=== PATIENT | female | born 1995 | race Caucasian/White ===

== ENCOUNTER 2024-02-22 06:02 | Day surgery (SDC) | payer BC, SELFPAY ==
[2024-02-22 06:27] VITALS: BP 119/72; PULSE 89; RESP 16; TEMP 36.7; O2SAT 97; BMI 52.4
[2024-02-22 06:31] LABS: Ur HCG Qualitative* Negative (Negative)
[2024-02-22] MEDS: SODIUM CHLORIDE 0.9 % (FLUSH) 10 ML SYRINGE IVF (06:55)
[2024-02-22] MEDS: LACTATED RINGERS 1000 ML 1,000 ML 100 ML IV (06:55)
[2024-02-22 06:57] LABS: Hemoglobin* 9.6 gm/dL (12.0-16.0)
--- NOTE | 2024-02-22 07:26 | W.PM.H&PU ---
History & Physical Update History & Physical Update H&P Reviewed and patient assessed: No changes noted
--- NOTE | 2024-02-22 07:27 | PM.PROC ---
Procedure Note Time Seen by Provider: 08:16 Date Seen: 02/22/24 Date of procedure: 02/22/24 Will [facility] bill your pro fee for this procedure?: Yes Procedure: Preoperative diagnosis: : 28 year-old nulligravid woman with uterine fibroids and menorrhagia with secondary anemia. Postoperative diagnosis: Same Procedure: Hysteroscopic Myomectomy using the Truclear incisor Anesthesia: Conscious sedation, paracervical block. Surgeon: Cristina Negro MD Data Center Technician: None Estimated blood loss: 5 mL IV Fluid: 800 Specimen: Endometrial curettings to pathology. Findings: Exam under anesthesia: Uterus: Anteverted position, less than 10 week sized, mobile, with no masses or nodularity palpable. Uterus sounded to 10 cm. No adnexal masses or nodularity palpable. On hysteroscopy: 3 cm entirely submucosal fibroid otherwise the cavity appeared normal. Procedure: Ember was taken to the operating operating room more conscious sedation was found to be adequate. The patient was placed on in the dorsal lithotomy position and an exam under anesthesia was performed with findings stated above. She was then prepped and draped in a normal sterile manner. A bivalve speculum was placed in the vagina. The cervix appears nulliparous. Otherwise no abnormalities. The paracervical block was placed using 0.5% Marcaine, 5 mL was injected at the 4 and 8 o'clock positions on the cervix. The anterior lip of the cervix was grasped with a single-tooth tenaculum. The cervix dilated to Hegar 8. The uterus sounded to 10 cm. The Truclear hysteroscope was advanced into the uterus. A diagnostic hysteroscopy was performed with normal saline as the insufflation medium. Findings are stated above. The Truclear dense tissue incisor was then advanced through the camera. The curettage was performed with the incisor over an approximately 5 minutes. The incisor was then removed. The endometrial cavity appeared normal. Saline deficit at the end of the procedure 1385mL. Total saline used 5435 mL. The single-tooth tenaculum was removed from the anterior lip of the cervix. Silver nitrate was used for hemostasis. The hysteroscope, Allis clamp and speculum were removed from the vaginal canal. The patient tolerated the procedure well. Sponge, lap and instrument counts were correct x2 at the end of the procedure. The patient was taken to the recovery area in stable condition.
[2024-02-22] MEDS: BUPIVACAINE 0.5% 30 ML INJECTION (07:44)
--- NOTE | 2024-02-22 07:47 | W.ANESCHARGE ---
Anesthesia Charges Start Date/Time Anesthesia Start Date: 02/22/24 Anesthesia Start Time: 07:27 Stop Date/Time Anesthesia Stop Date: 02/22/24 Anesthesia Stop Time: 08:09
[2024-02-22] MEDS: SILVER NITRATE APPLICATOR 1 EACH STICK..EA. TOPICAL (07:56)
[2024-02-22 08:06] VITALS: BP 118/76; PULSE 83; RESP 18; TEMP 37; O2SAT 97
--- NOTE | 2024-02-22 08:12 | W.ANESCHARGE ---
Anesthesia Charges Start Date/Time Anesthesia Start Date: 02/22/24 Anesthesia Start Time: 07:27 Stop Date/Time Anesthesia Stop Date: 02/22/24 Anesthesia Stop Time: 08:09
[2024-02-22 08:15] VITALS: BP 107/82; PULSE 73; RESP 18; O2SAT 99
[2024-02-22 08:30] VITALS: BP 119/55; PULSE 70; RESP 18; O2SAT 98
[2024-02-22 08:44] VITALS: BP 116/67; PULSE 76; RESP 18; O2SAT 97
== END 2024-02-22 08:47 | disposition home or self-care (01) ==
PROVIDERS: Visit Provider Obstetrics & Gynecology
PROC: 0UDB8ZZ Extraction of Endometrium, Via Natural or Artificial Opening Endoscopic (ICD-10-PCS; CPT 58558; principal; 2024-02-22 07:30)
DX: N92.0 Excessive and frequent menstruation with regular cycle (principal); D25.0 Submucous leiomyoma of uterus; D50.0 Iron deficiency anemia secondary to blood loss (chronic); E66.01 Morbid (severe) obesity due to excess calories; Z68.42 Body mass index [BMI] 45.0-49.9, adult
CPT/HCPCS: 58561; 00860; 36415; 81025; 85018; 86850; 86900; 86901; 88305; A9270; J0665; J1885; J2250; J2704; J3010; J3490; J7120

== ENCOUNTER 2024-11-13 15:18 | Outpatient (CLI) | payer BC, SELFPAY | END 2024-11-13 15:19 | disposition home or self-care (01) | PROVIDERS: Visit Provider Obstetrics & Gynecology | DX: D64.9 Anemia, unspecified (principal); N92.0 Excessive and frequent menstruation with regular cycle; E66.01 Morbid (severe) obesity due to excess calories | CPT/HCPCS: 82728; 83540; 83550; 84443 ==

== ENCOUNTER 2024-11-15 14:34 | Outpatient (CLI) | payer BC, SELFPAY ==
--- NOTE | 2024-11-15 15:00 | CRLHL7_ITS ---
For Patients: As a result of the Century Cures Act, medical imaging exams and procedure reports are released immediately into your electronic medical record. You may view this report before your referring provider. If you have questions, please contact your health care provider. INDICATION: Anemia, heavy bleeding COMPARISON: none TECHNIQUE: 2D ronquillo scale and color Doppler images were acquired of the pelvis using a transabdominal and transvaginal approach. FINDINGS: Sonographic images demonstrate a normal size and smooth outer contour of the uterus. Uterus measures 8.2 cm in length by 4.0 cm in AP diameter by 4.2 cm in transverse dimension. No uterine fibroid is present. Heterogeneous vascular structures associated with the fundal endometrium measuring 12 x 22 x 13 millimeters. Endometrial stripe is 14.9 millimeters within the fundal region. The ovaries are not visualized. There are no suspicious fluid collections within the cul-de-sac. IMPRESSION: Vascular heterogeneously hyperechoic structure associated with the fundal endometrium measuring 2.2 cm, probable polyp or focal endometrial hyperplasia. Submucosal fibroid is considered less likely. Dictated by Dominguez Guy MD @ 11/15/2024 6:05:10 PM (Electronically Signed)
== END 2024-11-15 14:35 | disposition home or self-care (01) ==
PROVIDERS: Visit Provider Obstetrics & Gynecology
DX: D64.9 Anemia, unspecified (principal); D25.9 Leiomyoma of uterus, unspecified; N92.0 Excessive and frequent menstruation with regular cycle
CPT/HCPCS: 76830; 76856

== ENCOUNTER 2024-12-12 08:56 | Day surgery (SDC) | payer BC, SELFPAY ==
[2024-12-12 09:17] VITALS: BMI 53.6
[2024-12-12 09:28] LABS: Ur HCG Qualitative* Negative (Negative)
[2024-12-12 09:31] VITALS: BP 135/91; PULSE 74; RESP 16; TEMP 36.7; O2SAT 98
[2024-12-12 09:41] LABS: Hemoglobin* 12.2 gm/dL (12.0-16.0)
[2024-12-12] MEDS: 0.9 % SODIUM CHLORIDE 500 ML 500 ML 100 ML IV (09:44)
[2024-12-12] MEDS: SODIUM CHLORIDE 0.9 % (FLUSH) 10 ML SYRINGE IVF (09:46)
--- NOTE | 2024-12-12 09:59 | W.PM.H&PU ---
History & Physical Update History & Physical Update H&P Reviewed and patient assessed: No changes noted
--- NOTE | 2024-12-12 10:00 | P.PCN_ITS ---
Procedure Note Date Seen: 12/12/24 Date of procedure: 12/12/24 Will [facility] bill your pro fee for this procedure?: Yes Procedure Description: Preoperative diagnosis: 29 year old, nulligravid woman with menorrhagia and submucosal fibroid Postoperative diagnosis: Same Procedure: Hysteroscopic myomectomy Anesthesia: Conscious sedation, paracervical block. Surgeon: Cristina Negro MD Charger Operator Helper: None Estimated blood loss: [] mL Specimen: Endometrial curettings to pathology. Findings: Exam under anesthesia: Uterus: [] position, less than [] week sized, mobile, with no masses or nodularity palpable. Uterus sounded to [] cm. No adnexal masses or nodularity palpable. On hysteroscopy: [] Procedure: Ember was taken to the operating operating room more conscious sedation was found to be adequate. The patient was placed on in the dorsal lithotomy position and an exam under anesthesia was performed with findings stated above. She was then prepped and draped in a normal sterile manner. A bivalve speculum was placed in the vagina. The cervix appears nulliparous. Otherwise no abnormalities. The paracervical block was placed using 0.5% Marcaine, 5 mL was injected at the 4 and 8 o'clock positions on the cervix. The anterior lip of the cervix was grasped with a long Allis clamp. The cervix dilated to Hegar 6. The uterus sounded to [] cm. The Truclear hysteroscope was advanced into the uterus. A diagnostic hysteroscopy was performed with normal saline as the insufflation medium. Findings are stated above. The Truclear incisor was then advanced through the camera. The curettage was performed with the incisor over an approximately [] minutes. The incisor was then removed. The endometrial cavity appeared normal. Saline deficit at the end of the procedure [] mL. Total saline used [] mL. [] was used for hemostasis. The hysteroscope, Allis clamp and speculum were removed from the vaginal canal. The patient tolerated the procedure well. Sponge, lap and instrument counts were correct x2 at the end of the procedure. The patient was taken to the recovery area in stable condition.
[2024-12-12] MEDS: BUPIVACAINE 0.5% 30 ML INJECTION (11:05)
[2024-12-12] MEDS: SILVER NITRATE APPLICATOR 1 EACH STICK..EA. TOPICAL (11:05)
[2024-12-12 11:20] VITALS: BP 141/76; PULSE 55; RESP 16; TEMP 36.6; O2SAT 92
--- NOTE | 2024-12-12 11:25 | P.ANES_ITS ---
Anesthesia Charges Start Date/Time Anesthesia Start Date: 12/12/24 Anesthesia Start Time: 10:15 Stop Date/Time Anesthesia Stop Date: 12/12/24 Anesthesia Stop Time: 11:23 Coding CPT Codes CPT Codes: ANESTH HYSTEROSCOPE/GRAPH - 66842 ([id number]) P3 - PATIENT W/SEVERE SYS DISEASE, QK - SLASHER SAWYER 2-4 CNCRNT ANES PROC, QX - ABORIGINAL LIAISON OFFICER SVC W/ MD MED DIRECTION
--- NOTE | 2024-12-12 11:25 | W.ANESCHARGE ---
Anesthesia Charges Start Date/Time Anesthesia Start Date: 12/12/24 Anesthesia Start Time: 10:15 Stop Date/Time Anesthesia Stop Date: 12/12/24 Anesthesia Stop Time: 11:23 Coding CPT Codes CPT Codes: ANESTH HYSTEROSCOPE/GRAPH - 09626 ([id number]) P3 - PATIENT W/SEVERE SYS DISEASE, QK - NEUROLOGY EPILEPSY PHYSICIAN 2-4 CNCRNT ANES PROC, QX - GROUP LEADER WAFER POLISHING SVC W/ MD MED DIRECTION
[2024-12-12 11:30] VITALS: BP 120/75; PULSE 50; RESP 16; O2SAT 94
--- NOTE | 2024-12-12 11:34 | P.ANES_ITS ---
Anesthesia Charges Start Date/Time Anesthesia Start Date: 12/12/24 Anesthesia Start Time: 10:15 Stop Date/Time Anesthesia Stop Date: 12/12/24 Anesthesia Stop Time: 11:23 Coding CPT Codes CPT Codes: ANESTH SURGERY OF ABDOMEN - 60773 ([id number]) QK - BILLET GRINDER 2-4 CNCRNT ANES PROC, QX - SAFETY LEADER SVC W/ MD MED DIRECTION, P3 - PATIENT W/SEVERE SYS DISEASE
--- NOTE | 2024-12-12 11:34 | W.ANESCHARGE ---
Anesthesia Charges Start Date/Time Anesthesia Start Date: 12/12/24 Anesthesia Start Time: 10:15 Stop Date/Time Anesthesia Stop Date: 12/12/24 Anesthesia Stop Time: 11:23 Coding CPT Codes CPT Codes: ANESTH SURGERY OF ABDOMEN - 54221 ([id number]) QK - PBX WIRE CHIEF 2-4 CNCRNT ANES PROC, QX - UTILIZATION MANAGEMENT UM NURSE SVC W/ MD MED DIRECTION, P3 - PATIENT W/SEVERE SYS DISEASE
--- NOTE | 2024-12-12 11:35 | P.PCN_ITS ---
Procedure Note Date Seen: 12/12/24 Date of procedure: 12/12/24 Will [facility] bill your pro fee for this procedure?: Yes Procedure: Preoperative diagnosis: 29 year-old nulligravid woman with uterine fibroids and menorrhagia Postoperative diagnosis: Same Procedure: Hysteroscopic myomectomy Anesthesia: Conscious sedation, paracervical block. Surgeon: Crisitna Negro MD Training Professional: None Estimated blood loss: 75 mL Specimen: Endometrial curettings to pathology. Findings: Exam under anesthesia: Uterus: Mid position, size difficult to evaluate by palpation secondary to patient body habitus. Uterus sounded to 10 cm. No adnexal masses or nodularity palpable. On hysteroscopy: Approximately 2 x 2 cm fundal, posterior fibroid. Both tubal ostia were visualized and the remainder of the endometrium appeared normal Procedure: Ember was taken to the operating operating room more conscious sedation was found to be adequate. The patient was placed on in the dorsal lithotomy position and an exam under anesthesia was performed with findings stated above. She was then prepped and draped in a normal sterile manner. A bivalve speculum was placed in the vagina. The cervix appears nulliparous. Otherwise no abnormalities. The paracervical block was placed using 0.5% Marcaine, 10 mL was injected at the 4 and 8 o'clock positions on the cervix. The anterior lip of the cervix was grasped with a single-toothed tenaculum. The cervix dilated to Hegar 8. The uterus sounded to 10 cm. The Truclear hysteroscope was advanced into the uterus. A diagnostic hysteroscopy was performed with normal saline as the insufflation medium. Findings are stated above. The Truclear incisor was then advanced through the camera. The curettage was performed with the incisor over an approximately 10 minutes with the soft tissue plus incisor. The dense tissue plus incisor was not available in stock in this facility. The incisor was then removed. The endometrial cavity appeared normal except for a very small sliver of fibroid tissue that was connected to the uterus with very thin stock. This portion of the fibroid was removed with sharp curettage. Saline deficit at the end of the procedure 3390 mL. Total saline used 6600 mL. Silver nitrate and 2 figure of 8 sutures at the right tenaculum site on the cervix using 3-0 Vicryl were used for hemostasis. The hysteroscope, Allis clamp and speculum were removed from the vaginal canal. The patient tolerated the procedure well. Sponge, lap and instrument counts were correct x2 at the end of the procedure. The patient was taken to the recovery area in stable condition. The patient received 30 mg of IV Toradol at the end of the procedure.
[2024-12-12 11:45] VITALS: BP 120/50; PULSE 52; RESP 14; O2SAT 94
[2024-12-12] MEDS: ACETAMINOPHEN 500 MG TABLET 1000 MG PO (11:54)
[2024-12-12 12:00] VITALS: BP 122/60; PULSE 56; RESP 16; O2SAT 97
[2024-12-12 12:15] VITALS: BP 131/78; PULSE 56; RESP 14; O2SAT 97
== END 2024-12-12 12:39 | disposition home or self-care (01) ==
LOC: OR 08:57
PROVIDERS: PCP Family Medicine; Visit Provider Obstetrics & Gynecology
PROC: 0UDB8ZZ Extraction of Endometrium, Via Natural or Artificial Opening Endoscopic (ICD-10-PCS; CPT 58558; principal; 2024-12-12 10:45)
DX: N92.0 Excessive and frequent menstruation with regular cycle (principal); D25.0 Submucous leiomyoma of uterus
CPT/HCPCS: 58561; 00860; 00952; 36415; 81025; 85018; 88305; A9270; C1782; J0665; J1100; J1885; J2250; J2405; J2704; J3010; J3490; J7030